=== PATIENT | male | born 2005 | race Two or more races ===

== ENCOUNTER 2024-11-20 21:13 | Emergency (ER) | payer MEDICAID ==
[~2024-11-20] VITALS: Ht 177.8 cm; Wt 64.0 kg
[2024-11-20 21:16] VITALS: BP 110/70; PULSE 98; RESP 19; TEMP 36.7; O2SAT 98
[2024-11-20 23:36] LABS: BASOPHILS % 0.5 % (0.0-2.0); EOSINOPHILS % 0.1 % (0.0-5.0); HEMATOCRIT. 43.1 % (42.0-52.0); HEMOGLOBIN. 14.6 g/dL (14.0-18.0); LYMPHOCYTES % 12.5 % (20.0-50.0); MEAN CORPUSCULAR HEMOGLOBIN 28.9 pg (28.0-32.0); MEAN CORPUSCULAR HGB CONC 33.9 g/dL (31.0-37.0); MEAN CORPUSCULAR VOLUME 85.2 fL (80.0-94.0); MEAN PLATELET VOLUME 7.3 fl (7.4-10.4); MONOCYTES % 6.2 % (2.0-8.0); NEUTROPHILS % 80.7 % (40.0-76.0); PLATELET 236 x1000/uL (130-400); RED BLOOD CELL COUNT 5.06 mill/uL (4.7-6.1); RED CELL DISTRIBUTION WIDTH 12.9 % (11.6-14.6)
[2024-11-20 23:38] LABS: CHLORIDE 108 mEq/L (98-107); POTASSIUM 4.2 mEq/L (3.5-5.1); SODIUM 143 mEq/L (136-145)
[2024-11-20 23:39] LABS: CARBON DIOXIDE 28 mEq/L (21-32)
[2024-11-20 23:40] LABS: CALCIUM 9.9 mg/dL (8.7-10.4)
[2024-11-20 23:45] LABS: GLUCOSE 112 mg/dL (70-105); UREA NITROGEN BLOOD 15 mg/dL (9-23)
[2024-11-20 23:51] LABS: TROPONIN I HIGH SENSITIVITY < 4 ng/L (3.0-53)
[2024-11-21 01:52] LABS: TROPONIN I HIGH SENSITIVITY < 4 ng/L (3.0-53)
[2024-11-21] MEDS: ONDANSETRON 4MG ODT PO ONE (02:18)
== END 2024-11-21 02:30 | disposition home or self-care (01) ==
LOC: ER 21:13
DX: S61.211A Laceration without foreign body of left index finger without damage to nail, initial encounter (principal); R55 Syncope and collapse; W27.2XXA Contact with scissors, initial encounter; X58.XXXA Exposure to other specified factors, initial encounter; Y93.89 Activity, other specified; Y92.89 Other specified places as the place of occurrence of the external cause; Y99.8 Other external cause status
CPT/HCPCS: 99285; 71045; 80048; 85025; 84484 ×2; 36415 ×2; 93005; Q0162